=== PATIENT | female | born 1980 | race Caucasian/White ===

== ENCOUNTER → 2024-01-27 14:15 | Outpatient (REF) | payer BC, SELFPAY | LOC: UCDH 14:15 | PROVIDERS: ATTENDING PHYSICIAN Physician Assistant Medical | DX: M25.562 Pain in left knee (principal) | CPT/HCPCS: 73564 ==

== ENCOUNTER 2024-03-17 06:26 | Day surgery (SDC) | payer BC, SELFPAY | END 2024-03-17 14:30 | disposition home or self-care (01) | LOC: GI 06:26 | PROVIDERS: ATTENDING PHYSICIAN Internal Medicine Gastroenterology | DX: R10.84 Generalized abdominal pain (principal); R19.4 Change in bowel habit; K64.0 First degree hemorrhoids; K64.4 Residual hemorrhoidal skin tags; R12 Heartburn; K44.9 Diaphragmatic hernia without obstruction or gangrene; K31.7 Polyp of stomach and duodenum; K63.5 Polyp of colon; K62.1 Rectal polyp; K29.50 Unspecified chronic gastritis without bleeding | CPT/HCPCS: 45385; 45380; 43239; 88305; 88342 ==